=== PATIENT | male | born 1990 | race Two or more races ===

== ENCOUNTER 2020-03-21 14:33 | Inpatient (IN) | payer OTHER ==
[~2020-03-21] VITALS: Ht 170.2 cm; Wt 70.2 kg
--- NOTE | 2020-03-21 15:44 | NUR ---
Pt here for increased work of breathing and SOB. States having a cough for a few weeks.
[2020-03-21 16:07] LABS: PLATELET (DIC) 240 x10^3/uL (130-400)
[2020-03-21 16:08] LABS: ALANINE AMINOTRANSFERASE 77 U/L (12-78); ALBUMIN 2.9 g/dL (3.4-5.0); ANION GAP 5 mmol/L (5-15); CALCIUM 8.5 mg/dL (8.5-10.1); CHLORIDE 104 mmol/L (98-107); CREATININE 1.33 mg/dL (0.7-1.3)
[2020-03-21 16:12] LABS: BASOPHILS % (AUTO) 0 % (0-1); EOSINOPHILS % (AUTO) 0 % (1-7); LYMPHOCYTES % (AUTO) 6 % (22-44); MEAN CORPUSCULAR HEMOGLOBIN 29.3 pg (27.5-34.5); MEAN CORPUSCULAR HGB CONC 33.7 g/dL (33.2-36.2); MEAN PLATELET VOLUME 8.7 fL (7.4-10.4); MONOCYTES % (AUTO) 2 % (2-9); NEUTROPHILS % (AUTO) 91 % (42-75); PLATELET COUNT 236 x10^3/uL (130-400); RED CELL DISTRIBUTION WIDTH 13.1 % (9.4-14.8)
[2020-03-21 16:15] LABS: ALKALINE PHOSPHATASE 256 U/L (45-117); BILIRUBIN,TOTAL 0.9 mg/dL (0.2-1.0); TOTAL PROTEIN 8.3 g/dL (6.4-8.2)
[2020-03-21 16:26] LABS: D-DIMER (DIC) 0.99 ug/mlFEU (0.00-0.52); PROTIME 10.4 Seconds (9.6-11.5); PTT 34 Seconds (25-31)
[2020-03-21 16:28] LABS: FIBRINOGEN > 860 mg/dL (200-340)
--- NOTE | 2020-03-21 16:30 | NUR ---
Pt resting, no needs at this time. VS updated.
[2020-03-21 16:35] LABS: C-REACTIVE PROTEIN, QUANT > 19.00 mg/dL (0.02-0.49)
[2020-03-21] MEDS ORDERED: CEFTRIAXONE PMX 1GM/50ML 50 ML ONE (16:35)
[2020-03-21] MEDS ORDERED: SODIUM CHLORIDE 0.9% 1,000ML IVBOLUS ONE (17:00)
[2020-03-21] MEDS ORDERED: AZITHROMYCIN 500 MG in SODIUM CHLORIDE 0.9% 250 ML IV ONE (17:00)
[2020-03-21 17:18] LABS: MD SCAN
[2020-03-21] MEDS ORDERED: DEXAMETHASONE 4 MG/ML, 1ML ONE (17:22)
[2020-03-21] MEDS ORDERED: ENOXAPARIN 40 MG/0.4 ML ONE (17:22)
[2020-03-21] MEDS ORDERED: ONDANSETRON 2MG/ML, 2ML IVPush PRN (17:30)
[2020-03-21] MEDS ORDERED: ONDANSETRON ODT 4 MG PO PRN (17:30)
[2020-03-21] MEDS ORDERED: LACTATED RINGERS 1,000 ML IVBOLUS ONE (17:30)
[2020-03-21] MEDS: DEXAMETHASONE 4 MG/ML, 1ML IVPush SCH (17:32)
[2020-03-21] MEDS: ENOXAPARIN 40 MG/0.4 ML SQ SCH (17:33)
[2020-03-21] MEDS ORDERED: CEFTRIAXONE PMX 1GM/50ML 50 ML IV ONE (18:00)
--- NOTE | 2020-03-21 18:53 | NUR ---
Report provided to Nellie WHITE
--- NOTE | 2020-03-21 18:54 | NUR ---
O2 sat 90% NRB at 15L. Provider aware. Respiratory paged for high flow per verbal order from provider
[2020-03-21] MEDS ORDERED: REMDESIVIR 200 MG in SODIUM CHLORIDE 0.9% 250 ML IVPB ONE (19:00)
[2020-03-21 20:11] VITALS: BP 118/74
--- NOTE | 2020-03-21 21:40 | NUR ---
O2 86% high flow. Respiratory paged for bipap. Provider aware. No s/sx acute distress. No use of accessory muscles noted. Speaking in clear, full sentences
--- NOTE | 2020-03-21 21:50 | NUR ---
Respiratory at bedside
--- NOTE | 2020-03-21 23:14 | NUR ---
RR in 50s. O2 mid 90s bipap. Voicemail left with MD Cabrera
[2020-03-21] MEDS: LACTATED RINGERS 1,000 ML IV SCH (23:16)
--- NOTE | 2020-03-21 23:33 | NUR ---
ED provider and respiratory therapy to bedside to eval pt. Pt continues to maintain airway. RR in high 40s, O2 sat mid 90s bipap. No use of accessory muscles noted. Speaking in clear, full sentences. Remains on continuous O2 monitoring/end tidal
--- NOTE | 2020-03-21 23:41 | NUR ---
Conversation with MD Cabrera r/t pt's respiratory status. MD agreeable to ED MD decision not to intubate. Will continue to monitor
--- NOTE | 2020-03-22 02:46 | NUR ---
Placed on hospital bed for comfort. A&o x4. States bipap is uncomfortable, but agreeeble to continuing bipap. Decreased WOB noted. RR remains low 40s. O2 remains mid 90s. RT to bedside to reeval. Bed low, side rail up, call hinojosa within reach
--- NOTE | 2020-03-22 03:45 | NUR ---
Pt status unchanged. NSR noted on monitor. RR remains high 30s, O2 mid 90s bipap. No s/sx acute respiratory distress. No use of accessory muscles noted. Bed low, side rails up, call hinojosa within reach
[2020-03-22 05:18] LABS: INTERNATIONAL NORMALIZED RATIO 1.01 (0.93-1.1); PROTHROMBIN TIME 10.7 Seconds (9.6-11.5)
[2020-03-22 05:19] LABS: BASOPHILS % (AUTO) 0 % (0-1); EOSINOPHILS % (AUTO) 0 % (1-7); LYMPHOCYTES % (AUTO) 5 % (22-44); MEAN CORPUSCULAR HEMOGLOBIN 29.3 pg (27.5-34.5); MEAN CORPUSCULAR HGB CONC 33.2 g/dL (33.2-36.2); MEAN PLATELET VOLUME 8.6 fL (7.4-10.4); MONOCYTES % (AUTO) 3 % (2-9); NEUTROPHILS % (AUTO) 92 % (42-75); PLATELET COUNT 234 x10^3/uL (130-400); RED BLOOD COUNT 4.73 x10^6/uL (4.38-5.82); RED CELL DISTRIBUTION WIDTH 13.3 % (9.4-14.8)
[2020-03-22 05:21] LABS: CHLORIDE 107 mmol/L (98-107)
[2020-03-22 05:29] LABS: ANION GAP 6 mmol/L (5-15); CALCIUM 8.3 mg/dL (8.5-10.1); CREATININE 0.95 mg/dL (0.7-1.3)
--- NOTE | 2020-03-22 05:45 | NUR ---
Respiratory to bed to re-eval. Titrated bipap settings down slightly. Pt tolerating well. Remains on continuous O2/tele. O2 high 90s bipap. RR remains high. Provider aware
[2020-03-22 05:48] LABS: MD NO
--- NOTE | 2020-03-22 06:52 | NUR ---
REPORT FROM PIERRE, PT RESTING.
--- NOTE | 2020-03-22 07:10 | NUR ---
REPORT RECIEVIED FROM PIERRE WHITE, ASSUMED CARE OF PT
[2020-03-22] MEDS ORDERED: THIAMINE 100MG TABLET ONE (07:46)
[2020-03-22] MEDS ORDERED: DEXAMETHASONE 4 MG/ML, 1ML ONE (07:46)
[2020-03-22] MEDS ORDERED: ASCORBIC ACID 500 MG TABLET ONE (07:47)
[2020-03-22] MEDS ORDERED: CEFTRIAXONE PMX 1GM/50ML 50 ML ONE (07:47)
[2020-03-22] MEDS ORDERED: ZINC SULFATE 220 MG CAPSULE ONE (07:47)
[2020-03-22] MEDS ORDERED: CHOLECALCIFEROL 5,000u TAB ONE (07:47)
[2020-03-22] MEDS ORDERED: CEFTRIAXONE PMX 2GM/50ML 50 ML ONE (07:59)
--- NOTE | 2020-03-22 08:07 | NUR ---
TP RN SPOKE C DR. THOMPSON ON THE PHONE. PT ADMIT ORDER CHANGED TO COVID ICU SECONDARY TO BEING PLACED ON BIPAP.
[2020-03-22] MEDS: ASCORBIC ACID 500 MG TABLET PO SCH ×2 (08:15→16:36)
[2020-03-22] MEDS: CEFTRIAXONE PMX 2GM/50ML 50 ML IVPB SCH (08:15)
[2020-03-22] MEDS: CHOLECALCIFEROL 5,000u TAB PO SCH (08:16)
[2020-03-22] MEDS: DEXAMETHASONE 4 MG/ML, 1ML IVPush SCH (08:16)
[2020-03-22] MEDS: ZINC SULFATE 220 MG CAPSULE PO SCH (08:16)
[2020-03-22] MEDS ORDERED: THIAMINE 100MG TABLET PO SCH (09:00)
[2020-03-22 09:16] LABS: ALANINE AMINOTRANSFERASE 49 U/L (12-78); ANION GAP 6 mmol/L (5-15); CHLORIDE 108 mmol/L (98-107)
[2020-03-22 09:19] LABS: ALKALINE PHOSPHATASE 183 U/L (45-117); BILIRUBIN,TOTAL 0.7 mg/dL (0.2-1.0); CREATININE 0.91 mg/dL (0.7-1.3); TOTAL PROTEIN 6.7 g/dL (6.4-8.2)
--- NOTE | 2020-03-22 09:22 | NUR ---
PT DENIES NEED FOR MEAL TRAY AT THIS TIME, PROVIDED WITH WATER, ASSISTED WITH BIPAP MASK FOR PT TO DRINK WATER, PT DOES DESAT 85% WITH BREIF BREAK FROM MASK, NOW AT 93%
[2020-03-22 10:13] LABS: FIO2 70 %
--- NOTE | 2020-03-22 12:00 | NUR ---
TASK RN COVERING PRIMARY RN MEAL BREAK. PT APPEARS TO BE SLEEPING AT THIS TIME, NAD. VS UPDATED IN COMPUTER.
[2020-03-22] MEDS: ENOXAPARIN 40 MG/0.4 ML SQ SCH (16:37)
[2020-03-22] MEDS: REMDESIVIR 100 MG in SODIUM CHLORIDE 0.9% 250 ML IVPB SCH (19:20)
[2020-03-23 04:00] VITALS: BP 113/63
[2020-03-23] MEDS: DEXAMETHASONE 4 MG/ML, 1ML IVPush SCH (08:58)
[2020-03-23] MEDS: CHOLECALCIFEROL 5,000u TAB PO SCH (08:58)
[2020-03-23] MEDS: ZINC SULFATE 220 MG CAPSULE PO SCH (08:58)
[2020-03-23] MEDS: ASCORBIC ACID 500 MG TABLET PO SCH ×2 (08:59→18:01)
[2020-03-23] MEDS: THIAMINE 100MG TABLET PO SCH (08:59)
[2020-03-23] MEDS: CEFTRIAXONE PMX 2GM/50ML 50 ML IVPB SCH (09:04)
[2020-03-23 09:42] LABS: ALANINE AMINOTRANSFERASE 53 U/L (12-78); ALBUMIN 2.2 g/dL (3.4-5.0); ANION GAP 6 mmol/L (5-15); CALCIUM 8.3 mg/dL (8.5-10.1); CHLORIDE 108 mmol/L (98-107); CREATININE 0.81 mg/dL (0.7-1.3)
[2020-03-23 09:44] LABS: ALKALINE PHOSPHATASE 198 U/L (45-117); BILIRUBIN,TOTAL 0.6 mg/dL (0.2-1.0)
[2020-03-23] MEDS ORDERED: FUROSEMIDE 40 MG/4 ML IV ONE (12:30)
[2020-03-23] MEDS: ENOXAPARIN 40 MG/0.4 ML SQ SCH (18:01)
[2020-03-23] MEDS: REMDESIVIR 100 MG in SODIUM CHLORIDE 0.9% 250 ML IVPB SCH (21:14)
[2020-03-24 04:00] VITALS: BP 123/79
[2020-03-24 04:36] LABS: BASOPHILS % (AUTO) 0 % (0-1); EOSINOPHILS % (AUTO) 0 % (1-7); LYMPHOCYTES % (AUTO) 8 % (22-44); MEAN PLATELET VOLUME 8.8 fL (7.4-10.4); MONOCYTES % (AUTO) 9 % (2-9); NEUTROPHILS % (AUTO) 83 % (42-75); PLATELET COUNT 354 x10^3/uL (130-400); RED BLOOD COUNT 4.94 x10^6/uL (4.38-5.82); RED CELL DISTRIBUTION WIDTH 12.9 % (9.4-14.8)
[2020-03-24 04:40] LABS: ALANINE AMINOTRANSFERASE 58 U/L (12-78); ALBUMIN 2.2 g/dL (3.4-5.0); ANION GAP 4 mmol/L (5-15); CALCIUM 8.4 mg/dL (8.5-10.1); CHLORIDE 110 mmol/L (98-107); CREATININE 0.78 mg/dL (0.7-1.3)
[2020-03-24 04:42] LABS: ALKALINE PHOSPHATASE 193 U/L (45-117); BILIRUBIN,TOTAL 0.5 mg/dL (0.2-1.0); TOTAL PROTEIN 6.8 g/dL (6.4-8.2)
[2020-03-24 06:03] LABS: MD SCAN
[2020-03-24 08:00] VITALS: BP 121/83
[2020-03-24] MEDS: ASCORBIC ACID 500 MG TABLET PO SCH ×2 (08:21→16:00)
[2020-03-24] MEDS: ZINC SULFATE 220 MG CAPSULE PO SCH (08:22)
[2020-03-24] MEDS: THIAMINE 100MG TABLET PO SCH (08:22)
[2020-03-24] MEDS: DEXAMETHASONE 4 MG/ML, 1ML IVPush SCH (08:22)
[2020-03-24] MEDS: CHOLECALCIFEROL 5,000u TAB PO SCH (08:22)
[2020-03-24] MEDS: CEFTRIAXONE PMX 2GM/50ML 50 ML IVPB SCH (08:26)
[2020-03-24] MEDS ORDERED: FUROSEMIDE 40 MG/4 ML IV ONE (10:00)
[2020-03-24 12:00] VITALS: BP 117/69
[2020-03-24] MEDS ORDERED: DOCUSATE 100 MG CAPSULE PO PRN (13:30)
[2020-03-24 13:32] VITALS: BP 110/76
[2020-03-24] MEDS: ENOXAPARIN 40 MG/0.4 ML SQ SCH (16:01)
[2020-03-24 19:21] VITALS: BP 120/77
[2020-03-24] MEDS: REMDESIVIR 100 MG in SODIUM CHLORIDE 0.9% 250 ML IVPB SCH (21:33)
[2020-03-25 00:41] VITALS: BP 107/66
[2020-03-25 05:18] LABS: ALBUMIN 2.4 g/dL (3.4-5.0); ANION GAP 2 mmol/L (5-15); CALCIUM 8.5 mg/dL (8.5-10.1); CHLORIDE 113 mmol/L (98-107)
[2020-03-25 05:24] LABS: ALANINE AMINOTRANSFERASE 89 U/L (12-78); ALKALINE PHOSPHATASE 207 U/L (45-117); BILIRUBIN,TOTAL 0.6 mg/dL (0.2-1.0); CREATININE 0.81 mg/dL (0.7-1.3)
[2020-03-25 07:36] VITALS: BP 113/76
[2020-03-25] MEDS: CHOLECALCIFEROL 5,000u TAB PO SCH (08:15)
[2020-03-25] MEDS: ASCORBIC ACID 500 MG TABLET PO SCH (08:15)
[2020-03-25] MEDS: THIAMINE 100MG TABLET PO SCH (08:15)
[2020-03-25] MEDS: DEXAMETHASONE 4 MG/ML, 1ML IVPush SCH (08:15)
[2020-03-25] MEDS: ZINC SULFATE 220 MG CAPSULE PO SCH (08:15)
[2020-03-25] MEDS: CEFTRIAXONE PMX 2GM/50ML 50 ML IVPB SCH (08:16)
[2020-03-25 12:33] VITALS: BP 114/71
[2020-03-25] MEDS: ASCORBATE SODIUM 3,000 MG in SODIUM CHLORIDE 0.9% 250 ML IVPB SCH ×2 (12:34→18:31)
[2020-03-25] MEDS: FLUTICASONE/VILANTEROL 100-25MCG/INH INH SCH (12:34)
[2020-03-25] MEDS: ENOXAPARIN 40 MG/0.4 ML SQ SCH (18:33)
[2020-03-25 20:20] VITALS: BP 125/79
[2020-03-25] MEDS: REMDESIVIR 100 MG in SODIUM CHLORIDE 0.9% 250 ML IVPB SCH (20:43)
[2020-03-26] MEDS: ASCORBATE SODIUM 3,000 MG in SODIUM CHLORIDE 0.9% 250 ML IVPB SCH ×4 (00:49→20:34)
[2020-03-26 02:16] VITALS: BP 110/72
[2020-03-26 07:44] VITALS: BP 107/69
[2020-03-26] MEDS: ZINC SULFATE 220 MG CAPSULE PO SCH (08:02)
[2020-03-26] MEDS: CHOLECALCIFEROL 5,000u TAB PO SCH (08:02)
[2020-03-26] MEDS: THIAMINE 100MG TABLET PO SCH (08:02)
[2020-03-26] MEDS: CEFTRIAXONE PMX 2GM/50ML 50 ML IVPB SCH (08:02)
[2020-03-26] MEDS: DEXAMETHASONE 4 MG/ML, 1ML IVPush SCH (08:03)
[2020-03-26] MEDS: FLUTICASONE/VILANTEROL 100-25MCG/INH INH SCH (08:05)
[2020-03-26 12:40] VITALS: BP 95/53
[2020-03-26] MEDS: ENOXAPARIN 40 MG/0.4 ML SQ SCH (18:12)
[2020-03-26 18:51] VITALS: BP 103/72
[2020-03-27] MEDS: ASCORBATE SODIUM 3,000 MG in SODIUM CHLORIDE 0.9% 250 ML IVPB SCH ×4 (02:51→21:18)
[2020-03-27 03:48] VITALS: BP 100/72
[2020-03-27 08:33] VITALS: BP 113/71
[2020-03-27] MEDS: CEFTRIAXONE PMX 2GM/50ML 50 ML IVPB SCH (08:53)
[2020-03-27] MEDS: DEXAMETHASONE 4 MG/ML, 1ML IVPush SCH (08:53)
[2020-03-27] MEDS: THIAMINE 100MG TABLET PO SCH (08:53)
[2020-03-27] MEDS: CHOLECALCIFEROL 5,000u TAB PO SCH (08:53)
[2020-03-27] MEDS: ZINC SULFATE 220 MG CAPSULE PO SCH (08:53)
[2020-03-27] MEDS: FLUTICASONE/VILANTEROL 100-25MCG/INH INH SCH (08:53)
[2020-03-27 14:03] VITALS: BP 109/69
[2020-03-27] MEDS: ENOXAPARIN 40 MG/0.4 ML SQ SCH (16:28)
[2020-03-27 19:35] VITALS: BP 112/76
[2020-03-28 01:00] VITALS: BP 101/67
[2020-03-28] MEDS: ASCORBATE SODIUM 3,000 MG in SODIUM CHLORIDE 0.9% 250 ML IVPB SCH ×2 (03:45→10:20)
[2020-03-28 05:23] LABS: MEAN CORPUSCULAR HEMOGLOBIN 29.6 pg (27.5-34.5); MEAN PLATELET VOLUME 8.2 fL (7.4-10.4); PLATELET COUNT 509 x10^3/uL (130-400); RED BLOOD COUNT 5.04 x10^6/uL (4.38-5.82)
[2020-03-28 05:48] LABS: ANION GAP 6 mmol/L (5-15); CALCIUM 8.3 mg/dL (8.5-10.1); CHLORIDE 110 mmol/L (98-107); CREATININE 0.98 mg/dL (0.7-1.3)
[2020-03-28 05:49] LABS: ALANINE AMINOTRANSFERASE 47 U/L (12-78); ALBUMIN 2.3 g/dL (3.4-5.0); ALKALINE PHOSPHATASE 138 U/L (45-117); BILIRUBIN,TOTAL 0.5 mg/dL (0.2-1.0); TOTAL PROTEIN 6.4 g/dL (6.4-8.2)
[2020-03-28 05:54] LABS: MD YES
[2020-03-28 05:56] LABS: <PLATELET ESTIMATE> INCREASED; <PLT MORPHOLOGY> NORMAL PLT MORPH; <RBC MORPHOLOGY> NORMAL; BANDS%(MANUAL) 1 % (0-7); LYMPH#(MANUAL) 1.01 x10^3/uL (1-3.4); LYMPHS% (MANUAL) 10 % (22-44); METAMYELOCYTES% (MANUAL) 1 % (0-1); MONOS#(MANUAL) 0.71 x10^3/uL (0.3-2.7); MONOS% (MANUAL) 7 % (2-9); SEG#(MANUAL) 8.18 x10^3/uL (1.8-6.8); SEGS% (MANUAL) 81 % (42-75)
[2020-03-28] MEDS: CEFTRIAXONE PMX 2GM/50ML 50 ML IVPB SCH (08:44)
[2020-03-28] MEDS: CHOLECALCIFEROL 5,000u TAB PO SCH (08:44)
[2020-03-28] MEDS: FLUTICASONE/VILANTEROL 100-25MCG/INH INH SCH (08:44)
[2020-03-28] MEDS: ZINC SULFATE 220 MG CAPSULE PO SCH (08:44)
[2020-03-28] MEDS: DEXAMETHASONE 4 MG/ML, 1ML IVPush SCH (08:44)
[2020-03-28] MEDS: THIAMINE 100MG TABLET PO SCH (08:44)
[2020-03-28 08:45] VITALS: BP 114/75
[2020-03-28] MEDS ORDERED: FLUT1AER INH (10:21)
== END 2020-03-28 13:39 | disposition home or self-care (01) | DRG 871 ==
LOC: ED 21:33 → EDIP 21:45 → ICU 03-22 15:43 → 3N 03-24 13:27
PROVIDERS: ADMIT Family Medicine; ATTEND Family Medicine
PROC: 5A09457 Assistance with Respiratory Ventilation, 24-96 Consecutive Hours, Continuous Positive Airway Pressure (ICD-10-PCS; principal; 2020-03-21)
DX: A41.89 Other specified sepsis (principal); U07.1 COVID-19; J12.89 Other viral pneumonia; J96.01 Acute respiratory failure with hypoxia; N17.0 Acute kidney failure with tubular necrosis; E87.2 Acidosis; Z87.891 Personal history of nicotine dependence
CPT/HCPCS: 36415; 36600; 71045; 80048; 80053; 82728; 82803; 83605; 83615; 83735; 84145; 85025; 85049; 85379; 85384; 85610; 85730; 86140; 87040; 87081; 93005; 94660; 96360; 96361; 99291; G0378; J0456; J0696; J1100; J1650; J1940; J7030; J7050; J7120; U0003